=== PATIENT | female | born 1980 | race Caucasian/White ===

== ENCOUNTER 2024-06-17 08:42 | Emergency (ER) | payer BC, SELFPAY ==
[2024-06-17 08:48] VITALS: BP 147/93; PULSE 72; RESP 18; TEMP 36.8; O2SAT 98; BMI 29.6
--- OUTSIDE RECORDS SUMMARY | 2024-06-17 09:32 | XMS_ITS | Clinical Summary ---
Author Organization [facility] Address [address] [place] [address] Care Team Providers Care [address] Glassware Replacer Name Role Phone Silvana Huntley APRN, CNP Primary Care Prov ider Source Comments You are receiving this document as you are listed as the primary care provider,follow-up provider, or the patient has been referred to you for consultation.This is in compliance with the Medicare and[facility] Systemcaid EHR Incentive Program,which states Providers who transition their patient to another setting of careor provider of care or refers their patient to another provider of care shouldprovide summary care record for each transition of care or referral. Stand OfferL[facility] CenterSwypeShield Allergies No known active allergies Medications Medication Sig Dispensed Refills Start Date End Date Status unknown medication Indications: PN: 10/10/2010 Active FLUoxetine (PROZAC) 40 MG capsule Take 40 mg by mouth daily. Active Active Problems No known active problems Immunizations Name Administration Dates Next Due DT Ped 04/13/1986,02/14/1984 DTP 1981,1981,1981 HepB Ped/Adol (0-18 yrs) 02/10/1997,09/16/1996,0 08/07/1996 Influenza, Unspecified Formulation 10/08/2002 MMR 06/08/1993,10/26/1982 OPV, Trivalent (Orimune or tOPV) 986,02/14/1984,1981,06/28/19 81 Td 04/15/2006,07/16/1996 Varicella 05/14/1998(Deferred: Immune by Siria ibanez) Social History Tobacco Use Types Packs/Day Years Used Date Smoking Tobacco: Never Sex and Gender Information Value Date Recorded Sex Assigned at Not on file Gender Identity Not on file Sexual Orientation Not on file Last Filed Vital Signs Vital Sign Reading Time Taken Comments Blood Pressure 134/95 07/18/2017 10:50 AM CDT Pulse 75 07/18/2017 10:50 AM CDT Temperature 36.9 ??C (98.5 ??F) 07/18/2017 1 0:50 AM CDT Respiratory Rate 20 07/18/2017 10:5 0 AM CDT Oxygen Saturation 98% 07/18/2017 10: 50 AM CDT Inhaled Oxygen Concentration - - Weight 65.5 kg (144 lb 7.8 oz) 06/15/20 10 1:23 PM CDT C: 65.5kg Height 160 cm (5' 3) 06/15/2010 1:23 PM CDT C: 160.0cm Body Mass Index 25.6 06/15/2010 1:23 PM CDT Plan of Treatment Health Maintenance Due Date Last Done Comments Hep C Screening (Preventive Services) 1981 Mammogram 1981 HIV Screening (Preventive Services) 1997 Adult Preventive Visit 1999 08/07/1996 DTaP/Tdap/Td (6 - Tdap) 04/16/2006 04/15/20, 07/16/1996, 04/13/1986, Additional history exists Cervical Cancer Screening Due 06/16/2010 06/15/2010, 05/24/2009, 05/13/2008, Additional history exists COVID-19 Vaccine ( season) 2023 Influenza (#1) 2024 10/08/2002 Zoster/Shingles (1 of 2) 2031 IPV (Polio) Completed 04/13/1986, 01/24, 1981, Additional history exists HepB Completed 02/10/1997, 08/26, 08/07/1996 HPV Vaccine Aged Out No longer eligi ble based on patient's age to complete this topic HepA Aged Out No longer eligi ble based on patient's age to complete this topic Hib Aged Out No longer eligi ble based on patient's age to complete this topic MCV4 Aged Out No longer eligi ble based on patient's age to complete this topic Pneumococcal Aged Out No longer eligi ble based on patient's age to complete this topic Procedures Procedure Name Priority Date/Time Associated Diagnosis Comments ANATOMICAL PATH LIQUID BASED Routine 06/15/2010 4:01 PM CDT from Last 3 Months or Most Recently Relevant to Health Maintenance Results * Pap Smear (06/15/2010 4:01 PM CDT) Pap Smear SEE TEXT No normal range HP CONVERSION Comment: Final GYNECOLOGICAL CYTOLOGY REPORT Pathology #: [id number] ?Date Obtained: 06/15/2010 ? Date Received: 06/16/2010 INTERPRETATION/RESULTS: Negative for Intraepithelial Lesion or Malignancy SPECIMEN ADEQUACY: Satisfactory for Evaluation. ??Endocervical cells/transformation zone component present. Verified on 06/20/2010 ??by ESTHER GONZALEZ(ASCP) (electronic signature) CLINICAL NOTES: ?LMP: 05/28/2010. SPECIMEN TYPE: ? CERVICAL WITH REFLEX TO HPV IF ASCUS ?End of Report 06/15/2010 4:01 PM CDT Silvana Huntley APRN, [facility]_1 Performing Organization Address City/State/[facility] Co de Phone Number HP CONVERSION from Last 3 Months or Most Recently Relevant to Health Maintenance Care Teams Boulevard Glassware Replacer Relationship Specialty Start Date End Date Silvana Huntley APRN, PREMIX OPERATOR [employer]TR[employer] [address] [phone] PCP - General 02/26/11
--- OUTSIDE RECORDS SUMMARY | 2024-06-17 09:32 | XMS_ITS | Clinical Summary ---
Author Organization [facility] Address [place], [place] [address] Care Team Providers Care Guard Dance Hall Name Role Phone Katherin Luciano MD Primary Care Provider Allergies No known active allergies Medications Medication Sig Dispensed Refills Start Date End Date Status multivitamin capsule Take 1 capsule by mouth once daily. Active vitamin B complex (B COMPLETE ORAL) 06/28/2023 Active labetaloL (TRANDATE) 300 mg tabletIndication s:HTN (hypertension) TAKE 1/2 TABLET(150 MG) BY MOUTH TWICE DAILY 90 Tablet 06/09/2024 Active amoxicillin-clav ulanate 875-125 mg tablet (AUGMENTIN)Indic ations:Parotid abscess Take 1 Tablet by mouth two times daily with meals for 10 days. 20 Tablet 06/16/2024 4 Active lisinopriL (PRINIVIL; ZESTRIL) 10 mg tabletIndication s:HTN (hypertension) Take 1 Tablet (10 mg) by mouth once daily. 30 Tablet 08/23/2023 4 Discontinued(*Pat ient states no longer taking) labetaloL (TRANDATE) 300 mg tabletIndication s:HTN (hypertension) Take 0.5 Tablets (150 mg) by mouth two times daily. 90 Tablet 03/09/2024 4 Discontinued Hospital, Clinic, or Other Facility Administered Medication Ordered Dose Route Frequency Start Date End Date Status cefTRIAXone (ROCEPHIN) Intramuscular injection 1 gIndications:skin and skin structure infection 1 g IM ONE TIME 06/16/2024 06/16/2024 Ended Active Problems Problem Noted Date Diagnosed Date Endometriosis 04/19/2022 Hypertension 04/19/2022 Resolved Problems Problem Noted Date Diagnosed Date Resolved Date History of section 04/19/2022 08/19/2023 History of depression 04/19/20222022 History of use of contracept telly intrauterine device (IUD) 04/19/2022 08/19/2023 (vaginal after ) 04/19/2022 08/19/2023 Depression with anxiety 01/16/201807/27 Encounter for supervision of other normal , first trimester 01/16/2018 08/19/2023 Overview: Desires with this Laurie Trujillo D.O. 05/07/2018 8:10 PM Estimated Date of Delivery: 09/21/18 Patient's last menstrual period was 12/15/2017 (exact date). Last Tdap- 07/08/2018 Last Flu vaccine- 09/06/2017 No Known Allergies Obstetric History T1 L1 SAB0 TAB0 Ectopic0 Multiple0 Live Births1 # Outcome Date GA Lbr Kevin/2nd Weight Sex Delivery Anes PTL Lv 2 Current 1 Term M CS-LTranv N MELISSA Complications: Intolerance Create lab flowsheet for OB labs- Component Latest Ref Rng & Units 01/16/2018 01/16/2018 01/16/2018 2:07 PM 2:07 PM 2:07 PM HEMOGLOBIN 12.0 - 16.0 g/dL 12.9 MCV 80 - 100 fL 89 ANTIBODY SCREEN Negative Negative SPECIMEN EXPIRATION DATE/TIME 01/19/18 23:59 RUBELLA IGG ANTIBODY Positive 1.86 HIV-1/HIV-2 ANTIBODY Non-Reactive Non-Reactive ABORH A Rh Negative HBSAG Nonreactive Nonreactive TREPONEMA PALLIDUM Negative Negative HEMOGLOBIN A1C SCREENING <6.4 % 4.7 Past Medical History: Diagnosis Date ? ? Depression with anxiety 01/16/2018 ? ? Encounter for supervision of other normal , first trimester 01/16/2018 interested in , c- with first child for intolerance. ? ? Endometriosis ? ? Infertility, female Past Surgical History: Procedure Laterality Date ? ? SECTION ? ? LAPAROSCOPIC ENDOMETRIOSIS FULGURATION x2 No data on file. 2nd Problems (from 01/16/18 to present) No problems associated with this episode. DONNELL Valladares.....02/21/2018 12:31 PM Encounters Date Type Department Care Team Description 06/16/2024 3:45 PM CDT Office Visit [facility] [address] [place] [address] Taye Barnes MD Derm Problem (Left side of face by ear, redness, swelling, pain, started 06/12/2024, getting worse) 06/16/2024 2:30 PM CDT Ancillary Procedure [facility] [address] [place] [address] Arrived 06/16/2024 10:20 AM CDT Telemedicine [facility] [address] [place] [phone] Larisa Flaherty NP Telehealth (Skin infection due to bug bite or pimple/No vitals taken -virtual visit./) 06/16/2024 Telephone [facility] [address] [place] [phone] Pcp, No Appointment Request (STAT - AMB CONSULT TO ENT SURGEON) 06/16/2024 Travel 06/07/2024 Refill [facility] [address] [place] [address] Katherin Luciano MD Refill Request (Labetalol) from Last 3 Months Immunizations Name Administration Dates Next Due AMB Influenza, IIV4 PF (=>6 mos Flulaval,Fluzone Fluarix)(Flu Clinic Only) 09/01/2020,09/06/2017,10/17/2016 DT (Age < 7 years) 04/13/1986,02/14/1984 DTP 1981,1981,1981 Hepatitis B (Peds) 02/10/1997,09/16/1996, 996 Influenza Virus, Unspecified 08/30/2021, 08/25/2013,09/27/2009,2001 Influenza, IIV3 (Age 6-35 mos) 08/25/2013,2008 Influenza, IIV4 08/23/2023, 3,08/30/2021,2018,08/15/2018,10/17/2016 MMR 06/08/1993,10/26/1982 Oral Polio Vaccine 04/13/1986, 4,1981,1980 Td (Age >=7 Years) 04/15/2006,07/16/1996 Tdap 06/30/2021,07/08/2018,09/08/2013 Family History Medical History Relation Name Comments Good Health Brother Good Health Father Thyroid Disease Father Good Health Mother Good Health Sister x3 Cancer-breast No Family History Cancer-ovarian No Family History Relation Name Status Comments Brother Father Mother Sister x3 Social History Tobacco Use Types Packs/Day Years Used Date Smoking Tobacco: Never Smokeless Tobacco: Never Tobacco Cessation:Counseling Given: No Alcohol Use Standard Drinks/Week Comments Yes 0 (1 standard drink = 0.6 oz pur e alcohol) occ PHQ-2 Answer Date Recorded PHQ-2 TOTAL SCORE 0 01/01/2022 Social Connections Answer Date Recorded Frequency of Communication with Friends and Fami ly 0 07/23/2023 Financial Resource Strain Answer Date R ecorded Difficulty of Paying Living Expenses 3 07/23/2023 Difficulty of Paying Living Expenses Not on file 07/23/2023 Food Insecurity Answer Date Recorded Worried About Running Out of Food in the Last Ye ar 1 07/23/2023 Transportation Needs Answer Date Record ed Lack of Transportation (Medical) 1 07/23/2023 Housing Stability Answer Date Recorded Unable to Pay for Housing in the Last Year 1 07/23/2023 Sex and Gender Information Value Date Recorded Sex Assigned at Not on file Gender Identity Not on file Sexual Orientation Not on file Obstetrics History Para Term AB IAB SAB Ectopic Multiple Livin g Live Births 2 1 1 0 0 1 1 Date Outcome GA Total Labor Labor/2nd/3rd Weight Sex Type Anes PTL Melissa A1 A5 Name Clin Term M CS-LT ranv N Living Complications: Intolera nce Last Filed Vital Signs Vital Sign Reading Time Taken Comments Blood Pressure 122/81 06/16/2024 3:44 PM CDT Pulse 69 06/16/2024 3:44 PM CDT Temperature 36.6 ??C (97.9 ??F) 06/16/2024 3:44 PM CD T Respiratory Rate 18 08/02/2020 11:40 AM CDT Oxygen Saturation 98% 06/16/2024 3:44 PM CDT Inhaled Oxygen Concentration - - Weight 75.8 kg (167 lb 3.2 oz) 06/16/2024 3:44 P M CDT Height 160 cm (5' 3) 01/01/2022 11:29 AM RELATIONSHIP MANAGER Body Mass Index 29.62 01/01/2022 11:29 AM RELATIONSHIP MANAGER Plan of Treatment Health Maintenance Due Date Last Done Comments Hepatitis C screening for age 18-79 1999 BMI (ht and wt on same day) for age 18+ 01/01/2023 01/01/2022, 06/24/2018, 01/16/2018, Additional history exists Depression screening for age 12+ 01/01/2023 01/01/2022, 05/07/2018, 03/24/2018, Additional history exists COVID-19 vaccine series ( season) 2023 11/13/2021, 03/03/2021, 02/10/2021 Pap test for age 21-65 02/11/2024 1, 02/10/2021, 04/26/2017 Influenza for age 9-49 07/26/2024 3, 12/10/2022, 08/30/2021, Additional history exists Tetanus booster 06/30/2031 06/30/2021, 06/25, 09/08/2013, Additional history exists HIV for age 15-65 Completed 01/16/2018 Tdap Completed 06/30/2021, 06/25, 09/08/2013 Pneumococcal series for age 6-64 Aged Out No longer eligible based on patient's age to complete this topic Medical Devices Implanted Type Area Carroting Machine Offbearer Device Identifier Shelf Expiration Date Model / Serial / Lot Latera Absorbable Nasal Implant Implanted:Qty: 1 on 07/28/2020 by Aparna Woodson MD at [facility] N/A: Nose [employer] 09/01/2020 [id number] / / [id number] Description:1 implant per na res (2 come in a kit) Absorbable Nasal Implant Procedures Procedure Name Priority Date/Time Associated Diagnosis Comments US NECK OR HEAD SOFT TISSUE STAT 06/16/2024 4:20 PM CDT Parotid abscess CLINICAL AUDIOLOGIST THIN PREP PAP SCREEN IMAGED Routine 02/10/2021 2:30 PM CDT ANTI HIV 1/2 Routine 01/16/2018 2:07 PM RELATIONSHIP MANAGER Encounter for supervision of other normal , first trimester from Last 3 Months or Most Recently Relevant to Health Maintenance Results * US NECK OR HEAD SOFT TISSUE (06/16/2024 4:20 PM CDT) Anatomical Region Laterality Modality NECK Ultrasound 06/16/2024 4:57 PM CDT Impressions 06/16/2024 4:57 PM CDT Focused sonographic evaluation of the left parotid gland at the reported region clinical concern demonstrates a mostly uniform and unremarkable appearance of the parotid parenchyma. No readily drainable fluid collection is identified. There is a 7 x 4 millimeter hypoechoic region in the parotid parenchyma with a reniform morphology which is difficult to fully visualize on the provided images, but is probably a nonenlarged intraparotid lymph node rather than a tiny nonspecific cystic lesion. Dictated by Suraj Gentile MD @ 06/16/2024 4:57:19 PM (Electronically Signed) Narrative 06/16/2024 4:57 PM CDT For Patients: ??As a result of the Century Cures Act, medical imaging exams and procedure reports are released immediately into your electronic medical record. ??You may view this report before your referring provider. ??If you have questions, please contact your health care provider. INDICATION: Parotid abscess COMPARISON: None. TECHNIQUE: Focused sonographic evaluation of the reported region of clinical concern was performed at the left parotid gland utilizing petersen-scale and color Doppler imaging techniques. FINDINGS: Focused sonographic evaluation of the left parotid gland at the reported region clinical concern demonstrates a mostly uniform and unremarkable appearance of the parotid parenchyma. No readily drainable fluid collection is identified. There is a 7 x 4 millimeter hypoechoic region in the parotid parenchyma with a reniform morphology which is difficult to fully visualize on the provided images, but is probably a nonenlarged intraparotid lymph node rather than a tiny nonspecific cystic lesion. Procedure Note Suraj Gentile MD - 06/16/2024 For Patients: As a result of the Cures Act, medical imagingexams and procedure reports are released immediately into your electronicmedical record. You may view this report before your referring provider.If you have questions, please contact your health care provider. INDICATION: Parotid abscess COMPARISON: None. TECHNIQUE: Focused sonographic evaluation of the reported region of clinical concernwas performed at the left parotid gland utilizing petersen-scale and colorDoppler imaging techniques. FINDINGS: Focused sonographic evaluation of the left parotid gland at the reportedregion clinical concern demonstrates a mostly uniform and unremarkableappearance of the parotid parenchyma. No readily drainable fluidcollection is identified. There is a 7 x 4 millimeter hypoechoic region inthe parotid parenchyma with a reniform morphology which is difficult tofully visualize on the provided images, but is probably a nonenlargedintraparotid lymph node rather than a tiny nonspecific cystic lesion. IMPRESSION: Focused sonographic evaluation of the left parotid gland at the reportedregion clinical concern demonstrates a mostly uniform and unremarkableappearance of the parotid parenchyma. No readily drainable fluidcollection is identified. There is a 7 x 4 millimeter hypoechoic region inthe parotid parenchyma with a reniform morphology which is difficult tofully visualize on the provided images, but is probably a nonenlargedintraparotid lymph node rather than a tiny nonspecific cystic lesion. Dictated by Suraj Gentile MD @ 06/16/2024 4:57:19 PM (Electronically Signed) Taye Barnes MD US * CLINICAL AUDIOLOGIST THIN PREP PAP SCREEN IMAGED (02/10/2021 2:30 PM CDT) Case Report Gynecologic Cytology Report ? Case: [id number] ? Authorizing Provider: ??Loren Douglas PA-C ?Collected: ? 02/10/2021 1430 ? Ordering Location: ? [facility] ?Received: ?02/14/2021 0912 ? First Screen: ?Nieves Sarkar ? Specimen: ?CLINICAL AUDIOLOGIST ThinPrep Vial Screening, Cervical/Vaginal ? 02/21/2021 9:04 AM CDT [facility] INTERPRETATION/ RESULT NEGATIVE FOR INTRAEPITHELIAL LESION OR MALIGNANCY (NIL) (none) 02/21/2021 9:04 AM [facility] IMEN ADEQUACY Satisfactory for evaluation No endocervical component seen in a patient Scant cellularity 02/21/2021 9:04 AM T [facility] HPV REQUEST HPV not requested 2020 9:04 AM T [facility] Last Pap Date 02/21/2021 9:04 AM T [facility] Comment:Unsure Menstrual Status 02/21/2021 9:[address] [facility] Additional Information 02/21/2021 9:04 AM [facility] Comment: Interpreted at [facility] - [address], [place] [address] Automated Review Successful 02/21/2021 9:04 AM T [facility] Comment:Specimen processed s uccessfully by automated automation engineer device, ThinPrep Imaging System, [employer] Note The pap test is a screening technique, not a diagnostic procedure. It is used primarily to screen for squamous cancers and precursor lesions. Published studies have shown that it is subject to both false negative and false positive results. The pap test should not be used as the sole means to diagnose or exclude pre-malignant and malignant lesions. 02/21/2021 9:04 AM CDT [facility] Other (Cervical/Vagina l) 02/10/2021 2:30 PM CDT 02/14/2021 9:12 AM CDT February Misael TINAJERO PATHOLOGY/CYTOLOGY [facility] [address] [place] [address], [place] * ANTI HIV 1/2 (01/16/2018 2:07 PM RELATIONSHIP MANAGER) HIV-1/HIV-2 ANTIBODY Non-Reacti ve Non-Reacti ve 01/16/2018 8:37 PM RELATIONSHIP MANAGER [facility] Blood BLOOD SPECIMEN / Unknown Butterfly / Unknown 01/16/2018 2:07 PM RELATIONSHIP MANAGER 01/16/2018 2:08 PM RELATIONSHIP MANAGER Narrative [facility] - 01/16/2018 8:37 PM RELATIONSHIP MANAGER HIV-1 p24 and HIV-1/HIV-2 Ab not detected Tatiana Tim FUEL EFFICIENT AIRCRAFT DESIGNER SEND [facility]S [facility] [address] [place] [address], [place] from Last 3 Months or Most Recently Relevant to Health Maintenance Advance Directives * Full Code (Latest Code Status on File) Date Activated Date Inactivated Comments 07/28/2020 7:55 AM 07/28/2020 3:56 PM Question Answer Comments Code Status Discussion: Discussed Care Teams Guard Dance Hall Relationship Specialty Start Date End Date Katherin Luciano MD [address] [place] [address] PCP - General Family Practice 06/04/18
--- OUTSIDE RECORDS SUMMARY | 2024-06-17 09:32 | XMS_ITS | Encounter Summary ---
Author Organization [facility] Address [address] [place] [address] Care Team Providers Care School Manager Name Role Phone Silvana Huntley APRN, CNP Primary Care Prov ider Encounter Details Date Type Department Care Team (Late st Contact Info) Description 01/28/1997 Orders Only [facility] Efe Mak MD Social History Tobacco Use Types Packs/Day Years Used Date Smoking Tobacco: Never Assessed Sex and Gender Information Value Date Recorded Sex Assigned at Not on file Gender Identity Not on file Sexual Orientation Not on file documented as of this encounter Plan of Treatment Not on file documented as of this encounter Visit Diagnoses Not on filedocumented in this encounter Care Teams School Manager Relationship Specialty Start Date End Date Silvana Huntley APRN, CNP [address] [place] [phone] PCP - General 02/26/11 documented as of this encounter
--- NOTE | 2024-06-17 11:17 | ED.GENADULT ---
HPI - General Adult General Chief complaint: Skin/Abscess/Foreign Body Stated complaint: Skin infection Time Seen by Provider: 06/17/24 08:49 Source: patient Mode of arrival: ambulatory Limitations: no limitations History of Present Illness HPI narrative: Patient is a 44-year-old woman who presents for evaluation of redness and swelling of the left side of her face. She was seen at [facility] yesterday, actually had an ultrasound in which they reported no abscess. She was given an IM shot of antibiotic in clinic and started on Augmentin, she was told to start that today but she actually took a dose at 1:00 a.m. because she was worried that it was not looking any better. She has therefore taken to doses at this point. It is not any worse but it does not look any better either. She has not had fevers or any other systemic symptoms. She thinks there may have been a pimple or a bug bite there that started this and now she has pain and swelling. Related Data Home Medications ?Medication ?Instructions ?Recorded ?Confirmed amoxicillin 875 mg-potassium 1 tab PO BID 06/17/24 06/17/24 clavulanate 125 mg tablet labetalol 300 mg tablet mg PO DAILY 06/17/24 Previous Rx's ?Medication ?Instructions ?Recorded sulfamethoxazole 800 1 tab PO BID #14 tabs 06/17/24 mg-trimethoprim 160 mg tablet (Bactrim DS) Allergies Allergy/AdvReac Type Severity Reaction Status Date / Time No Known Drug Allergies Allergy Verified 06/17/24 08:54 Review of Systems Status of ROS: Reports: 6 or more systems reviewed and unremarkable except as noted in History and below PFSH PFS Social History Smoking Status: Never smoker Do you use any of these nicotine containing products: None Second hand tobacco smoke exposure: No How often do you have a drink containing alcohol: never How often do you have six or more drinks on one occasion: Never AUDIT-C Alcohol total score: 0 Non-prescribed substance use: denies use Exam Narrative: Exam Narrative: Vital signs reviewed In general, alert, well-appearing woman. Voice is normal. Eyes: Pupils are equal and reactive. Extraocular movements are full. There is no periorbital erythema, she has a little bit of boggy edema noted under the left eye without associated warmth, erythema or tenderness. ENT: On the left lateral cheek just in front of the year there is a small what appears to been a recent pustular lesion which is now slightly scabbed and there is an area of surrounding erythema and induration. No fluctuance. Pinna and canal/TM are normal. Const: Vital Signs, click to edit/add: Vital Signs - 24 hr 06/17/24 08:48 Temperature 98.2 F Pulse Rate [Right Pulse Oximeter] 72 Respiratory Rate 18 Blood Pressure [Ri ght Upper Arm] 147/93 H Pulse Oximetry 98 Oxygen Delivery Me thod Room Air Documenting provider has reviewed patient's vital signs: yes Course Course ED Course: I did a bedside ultrasound just to confirm that we did not see any evidence of abscess today. We obtained a report from yesterday which was read as showing mostly uniform an unremarkable appearance of the parotid parenchyma. There was no identifiable drainable fluid content collection. There was a 7 mm x 4 mm hypoechoic region in the parotid parenchyma with a reniform morphology which was thought to be probably a nonenlarged intraparotid lymph node. I think I can see this area again today, I do not see anything that looks to require drainage. Discussed with her that I would not expect much clinical improvement at this time based on less than 24 hours of antibiotics. She is on Augmentin and I have recommended that she continue that. I did also put her on Bactrim to cover MRSA. Reviewed that over the next 48-72 hours I would expect some gradual improvement. If at any time she has dramatic worsening or develops significant systemic symptoms would ask her to come back. Otherwise she should be seen again if no improvement is noted over the next few days. Vital Signs Vital signs: Initial Vital Signs Temperature 98.2 F 06/17/24 08:48 Temperature Source Temporal Artery Scan 06/17/24 08:48 Pulse Rate 72 06/17/24 08:48 Pulse Rhythm Regular 06/17/24 08:48 Pulse Strength 3+ Normal 06/17/24 08:48 Respiratory Rate 18 06/17/24 08:48 Blood Pressure 147/93 H 06/17/24 08:48 Blood Pressure Mean 111 H 06/17/24 08:48 Blood Pressure Position Sitting 06/17/24 08:48 Pulse Oximetry 98 06/17/24 08:48 Oxygen Delivery Method Room Air 06/17/24 08:48 Vital Signs Temperature 98.2 F 06/17/24 08:48 Pulse Rate 72 06/17/24 08:48 Respiratory Rate 18 06/17/24 08:48 Blood Pressure 147/93 H 06/17/24 08:48 Pulse Oximetry 98 06/17/24 08:48 Oxygen Delivery Method Room Air 06/17/24 08:48 Temperature 98.2 F 06/17/24 08:48 Pulse Rate 72 06/17/24 08:48 Respiratory Rate 18 06/17/24 08:48 Blood Pressure 147/93 H 06/17/24 08:48 Pulse Oximetry 98 06/17/24 08:48 Oxygen Delivery Method Room Air 06/17/24 08:48 Discharge Plan Discharge Clinical Impression: Cellulitis of face Patient Disposition: Home, Self-Care Condition: Stable Instructions: Cellulitis (ED) Additional Instructions: Continue Augmentin as you have been. Will add Bactrim. Anticipate gradual improvement over the next 48-72 hours. If you do not note any improvement over that time, you should be seen again. Likewise if you have dramatic worsening, has significantly worsened redness of your face, fevers, chills, vomiting or other worsening return at any time for re-evaluation. Prescriptions: New sulfamethoxazole-trimethoprim [Bactrim DS] 800-160 mg tablet 1 tab PO BID Qty: 14 0RF No Action labetalol 300 mg tablet PO DAILY amoxicillin-pot clavulanate 875-125 mg tablet 1 tab PO BID Follow Up/Referrals: Katherin Luciano MD [Primary Care Provider] - Stand Alone Forms: [facility] Info Instructions
== END 2024-06-17 09:51 | disposition home or self-care (01) ==
PROVIDERS: Emergency Provider Emergency Medicine; PCP Family Medicine
DX: L03.211 Cellulitis of face (principal)
CPT/HCPCS: 93308; 99283; 99284